=== PATIENT | female | born 2000 | race Caucasian/White ===

== ENCOUNTER 2020-11-11 18:25 | Inpatient (IN) | payer OTHER ==
[2020-11-11] MEDS ORDERED: ELECTROLYTE-148 SOLN 500 ML IV ONE ×2 (19:45→21:15)
[2020-11-11 20:22] LABS: BASO % 0.2 % (0-2.0); EOS % 0.8 % (0-4.5); HEMATOCRIT 36.5 % (32.4-45.2); HEMOGLOBIN 12.4 GM/dL (10.7-15.3); LYMPH % 17.2 % (8-40); MCH 31.1 pg (25.7-33.7); MCHC 34.1 g/dl (32.0-36.0); MEAN CELL VOLUME 91.1 fl (80-96); MEAN PLT VOLUME 7.6 fl (7.5-11.1); NEUT % 74.8 % (42.8-82.8); PLATELET COUNT 196 K/MM3 (134-434); RBC 4.01 M/mm3 (3.60-5.2); RDW 13.1 % (11.6-15.6); WHITE BLOOD COUNT 10.9 K/mm3 (4.0-10.0)
[2020-11-11 20:27] VITALS: BMI 35.7
[2020-11-11 20:29] LABS: INR 0.97 (0.83-1.09); PROTHROMBIN TIME (PATIENT) 11.7 SEC (9.7-13.0)
[2020-11-11 20:32] LABS: ACTIVATED PTT 26.4 SECONDS (25.2-36.5)
[2020-11-11 20:46] LABS: POTASSIUM 3.9 mmol/L (3.5-5.1)
[2020-11-11 20:49] LABS: BLOOD UREA NITROGEN 5.2 mg/dL (7-18); CALCIUM 8.3 mg/dL (8.5-10.1)
[2020-11-11 20:53] LABS: CREATININE 0.5 mg/dL (0.55-1.3)
[2020-11-11] MEDS ORDERED: ELECTROLYTE-148 SOLN 1,000 ML IV SCH (21:45)
[2020-11-11] MEDS ORDERED: BUTORPHANOL TARTRATE 2 MG/ML VIAL ONE (22:33)
[2020-11-11] MEDS ORDERED: PROMETHAZINE HCL 25 MG/1 ML VIAL ONE (22:34)
[2020-11-11] MEDS ORDERED: BUTORPHANOL TARTRATE 2 MG/ML VIAL IVPB ONE (23:00)
[2020-11-11] MEDS ORDERED: PROMETHAZINE HCL 25 MG/1 ML VIAL IVPB ONE (23:00)
[2020-11-12] MEDS ORDERED: ELECTROLYTE-148 SOLN 1,000 ML IV SCH (10:15)
[2020-11-12] MEDS ORDERED: OXYTOCIN 30 UNITS in 0.9% NS 30 UNIT/500 ML INFUS.BAG IVPB SCH (10:15)
[2020-11-12 14:06] VITALS: BP 113/78; PULSE 105; TEMP 98.1
[2020-11-13 12:28] LABS: POC NITRAZINE POS
== END 2020-11-12 17:15 | disposition home or self-care (01) | DRG 565 ==
LOC: JDEL 18:25 → JLDR 18:55
PROVIDERS: ADMIT Obstetrics & Gynecology; ATTEND Obstetrics & Gynecology
DX: O47.1 False labor at or after 37 completed weeks of gestation (principal)
CPT/HCPCS: 36415; 59025; 76819-TC; 80048; 83986-QW; 85025; 85610; 85730; 86780; 86850; 86900; 86901; C9803; U0003

== ENCOUNTER 2020-11-15 11:55 | Inpatient (IN) | payer OTHER ==
[2020-11-15] MEDS ORDERED: OXYTOCIN 30 UNITS in 0.9% NS 30 UNIT/500 ML INFUS.BAG IVPB SCH (12:30)
[2020-11-15] MEDS ORDERED: ELECTROLYTE-148 SOLN 1,000 ML IV SCH (12:30)
[2020-11-15 14:06] LABS: BASO % 0.2 % (0-2.0); EOS % 0.6 % (0-4.5); HEMATOCRIT 35.6 % (32.4-45.2); HEMOGLOBIN 12.2 GM/dL (10.7-15.3); LYMPH % 14.2 % (8-40); MCHC 34.2 g/dl (32.0-36.0); MEAN CELL VOLUME 90.5 fl (80-96); MEAN PLT VOLUME 7.4 fl (7.5-11.1); MONO % 5.9 % (3.8-10.2); NEUT % 79.1 % (42.8-82.8); PLATELET COUNT 191 K/MM3 (134-434); RBC 3.94 M/mm3 (3.60-5.2); RDW 12.7 % (11.6-15.6); WHITE BLOOD COUNT 9.3 K/mm3 (4.0-10.0)
[2020-11-15 14:14] LABS: INR 0.98 (0.83-1.09); PROTHROMBIN TIME (PATIENT) 12.1 SEC (9.7-13.0)
[2020-11-15 14:16] LABS: ACTIVATED PTT 26.9 SECONDS (25.2-36.5)
[2020-11-15 14:27] LABS: POTASSIUM 4.1 mmol/L (3.5-5.1)
[2020-11-15 14:29] LABS: BLOOD UREA NITROGEN 7.9 mg/dL (7-18); CALCIUM 8.4 mg/dL (8.5-10.1)
[2020-11-15 14:32] LABS: CREATININE 0.5 mg/dL (0.55-1.3)
[2020-11-15] MEDS ORDERED: OXYTOCIN 30 UNITS in 0.9% NS 30 UNIT/500 ML INFUS.BAG IVPB ONE (14:36)
[2020-11-15 15:18] VITALS: BMI 35.9
[2020-11-15] MEDS ORDERED: PCA PUMP NR ONE ×2 (17:39→22:31)
[2020-11-15] MEDS ORDERED: FENTANYL/BUPIVACAINE/NS/PF - PCEA - 50 ML DISP.SYRIN EP ONE (17:39)
[2020-11-15] MEDS ORDERED: NALOXONE HCL 0.4 MG/ML VIAL IVPUSH PRN (18:17)
[2020-11-15] MEDS: FENTANYL/BUPIVACAINE/NS/PF - PCEA - 50 ML DISP.SYRIN EP SCH (18:25)
[2020-11-15] MEDS ORDERED: OXYTOCIN 20 UNITS in 0.9% NS 20 UNIT/1,000 ML INFUS.BAG IV ONE ×2 (21:06→23:49)
[2020-11-15] MEDS ORDERED: BENZOCAINE 20% 57 GM BOTTLE TP PRN (21:30)
[2020-11-15] MEDS ORDERED: BENZOCAINE 28 GM HEMORRHOIDAL OINTMENT TP PRN (21:30)
[2020-11-15] MEDS ORDERED: WITCH HAZEL 50% (TUCKS) 40 PAD/JAR PAD TP PRN (21:30)
[2020-11-15] MEDS ORDERED: METHYLERGONOVINE MALEATE 0.2 MG/1 ML AMP IM PRN (21:30)
[2020-11-15] MEDS ORDERED: BISACODYL 10 MG SUPP.RECT RC PRN (21:30)
[2020-11-15] MEDS ORDERED: OXYTOCIN 20 UNITS in 0.9% NS 20 UNIT/1,000 ML INFUS.BAG IV SCH (21:30)
[2020-11-15] MEDS: MISOPROSTOL 200 MCG TABLET PO SCH (22:20)
[2020-11-15] MEDS ORDERED: ACETAMINOPHEN 325 MG TABLET (FP) ONE (22:30)
[2020-11-15] MEDS: ACETAMINOPHEN 325 MG TABLET (FP) PO PRN (22:30)
[2020-11-16] MEDS: ACETAMINOPHEN 325 MG TABLET (FP) PO PRN ×3 (01:25→21:54)
[2020-11-16] MEDS: IBUPROFEN 600 MG TABLET (FP) PO PRN ×2 (01:25→20:22)
[2020-11-16] MEDS ORDERED: diphenhydrAMINE HCL 25 MG CAPSULE (FP) PO ONE (02:40)
[2020-11-16 09:28] LABS: BASO % 0.1 % (0-2.0); EOS % 0.4 % (0-4.5); HEMATOCRIT 32.6 % (32.4-45.2); HEMOGLOBIN 11.2 GM/dL (10.7-15.3); LYMPH % 13.1 % (8-40); MCH 31.2 pg (25.7-33.7); MCHC 34.3 g/dl (32.0-36.0); MEAN CELL VOLUME 90.8 fl (80-96); MEAN PLT VOLUME 7.7 fl (7.5-11.1); MONO % 5.9 % (3.8-10.2); NEUT % 80.5 % (42.8-82.8); PLATELET COUNT 171 K/MM3 (134-434); RBC 3.59 M/mm3 (3.60-5.2); RDW 12.7 % (11.6-15.6)
[2020-11-16] MEDS: FERROUS SO4 325 MG TABLET (FP) PO SCH (09:45)
[2020-11-16] MEDS: PRENATAL VITAMINS W/ FOLIC ACID TABLET (FP) PO SCH (09:46)
[2020-11-16] MEDS: FENTANYL/BUPIVACAINE/NS/PF - PCEA - 50 ML DISP.SYRIN EP SCH (21:55)
[2020-11-16] MEDS ORDERED: SENNOSIDES/DOCUSATE COMBO (SENNA PLUS) TABLET (UD) PO PRN (22:00)
[2020-11-17] MEDS: MISOPROSTOL 200 MCG TABLET PO SCH (00:44)
[2020-11-17] MEDS: ACETAMINOPHEN 325 MG TABLET (FP) PO PRN (06:42)
[2020-11-17] MEDS: IBUPROFEN 600 MG TABLET (FP) PO PRN (06:42)
[2020-11-17] MEDS: PRENATAL VITAMINS W/ FOLIC ACID TABLET (FP) PO SCH (11:29)
[2020-11-17] MEDS: FERROUS SO4 325 MG TABLET (FP) PO SCH (11:29)
[2020-11-17 13:09] VITALS: BP 114/76; PULSE 97; TEMP 98
== END 2020-11-17 12:15 | disposition home or self-care (01) | DRG 560 ==
LOC: JLDR 11:55 → J3W 11-16 00:53
PROVIDERS: ADMIT Obstetrics & Gynecology; ATTEND Obstetrics & Gynecology
PROC: 10E0XZZ Delivery of Products of Conception, External Approach (ICD-10-PCS; principal; 2020-11-15)
PROC: 10907ZC Drainage of Amniotic Fluid, Therapeutic from Products of Conception, Via Natural or Artificial Opening (ICD-10-PCS; 2020-11-15)
PROC: 3E033VJ Introduction of Other Hormone into Peripheral Vein, Percutaneous Approach (ICD-10-PCS; 2020-11-15)
PROC: 0W8NXZZ Division of Female Perineum, External Approach (ICD-10-PCS; 2020-11-15)
PROC: 0HQ9XZZ Repair Perineum Skin, External Approach (ICD-10-PCS; 2020-11-15)
PROC: 0UC97ZZ Extirpation of Matter from Uterus, Via Natural or Artificial Opening (ICD-10-PCS; 2020-11-15)
DX: O72.1 Other immediate postpartum hemorrhage (principal); O70.0 First degree perineal laceration during delivery; Z3A.39 39 weeks gestation of pregnancy; Z37.0 Single live birth
CPT/HCPCS: 36415; 80048; 85025; 85461; 85610; 85730; 86780; 86850; 86870; 86900; 86901; 86902

== ENCOUNTER 2021-06-26 13:27 | Emergency (ER) | payer OTHER ==
[2021-06-26 13:47] VITALS: BP 102/67; PULSE 70; TEMP 99.1; BMI 27.8
[2021-06-26 14:23] LABS: EOS % 1.1 % (0-4.5); HEMATOCRIT 38.4 % (32.4-45.2); HEMOGLOBIN 12.4 GM/dl (10.7-15.3); LYMPH % 27.7 % (8-40); MCH 28.1 pg (25.7-33.7); MCHC 32.2 g/dl (32.0-36.0); MEAN CELL VOLUME 87.3 fl (80-96); MONO % 6.3 % (3.8-10.2); NEUT % 60.9 % (42.8-82.8); PLATELET COUNT 228 10^3/uL (134-434); WHITE BLOOD COUNT 5.2 K/mm3 (4.0-10.8)
[2021-06-26 14:29] LABS: ALBUMIN 4.1 g/dl (3.4-5.0); ALK PHOS 67 U/L (45-117); ANION GAP 7 MMOL/L (8-16); BILIRUBIN,TOTAL 0.5 mg/dl (0.2-1); CALCIUM 8.5 mg/dl (8.5-10); CHLORIDE 105 mmol/L (98-107); CO2 23 mmol/L (21-32); CREATININE 0.8 mg/dl (0.55-1.3); GLUCOSE,RANDOM 87 mg/dl (74-106); SGOT/AST 15 U/L (15-37); SGPT/ALT 13 U/L (13-61); SODIUM 135 mmol/L (136-145); TOT PROT 6.6 g/dl (6.4-8.2)
== END 2021-06-26 16:07 | disposition home or self-care (01) ==
LOC: FER 13:27
DX: M79.602 Pain in left arm (principal)
CPT/HCPCS: 36415; 71045-TC-FY; 80053; 84484; 85025; 93005; 99284-25